=== PATIENT | male | born 1975 | race Caucasian/White ===

== ENCOUNTER → 2024-01-27 09:48 | Outpatient (REF) | payer BC, SELFPAY | LOC: RAD 09:48 | PROVIDERS: ATTENDING PHYSICIAN Physician Assistant; FAMILY PHYSICIAN Family Medicine | DX: R11.2 Nausea with vomiting, unspecified (principal) | CPT/HCPCS: 74246; 74248 ==

== ENCOUNTER → 2024-08-06 06:25 | Day surgery (SDC) | payer BC, SELFPAY | LOC: GI 06:25 | PROVIDERS: ATTENDING PHYSICIAN Specialist | DX: K22.70 Barrett's esophagus without dysplasia (principal); K29.50 Unspecified chronic gastritis without bleeding; R11.2 Nausea with vomiting, unspecified | CPT/HCPCS: 43239; 88305; 88342 ==

== ENCOUNTER → 2024-09-25 07:28 | Outpatient (REF) | payer BC, SELFPAY | LOC: HWRAD 07:28 | PROVIDERS: ATTENDING PHYSICIAN Student in an Organized Health Care Education/Training Program | DX: D17.1 Benign lipomatous neoplasm of skin and subcutaneous tissue of trunk (principal) | CPT/HCPCS: 76536; 76604 ==

== ENCOUNTER → 2024-09-28 13:38 | Outpatient (REF) | payer SELFPAY | LOC: HWRAD 13:38 | PROVIDERS: ATTENDING PHYSICIAN Student in an Organized Health Care Education/Training Program | DX: E78.5 Hyperlipidemia, unspecified (principal) | CPT/HCPCS: 75571 ==

== ENCOUNTER 2024-11-12 14:20 | Emergency (ER) | payer BC, SELFPAY ==
[2024-11-12 14:22] VITALS: BP 164/98
[2024-11-12 14:38] LABS: % Basophils 0.5 % (0-2); % Eosinophils 2.2 % (0-6); % Immature Granulocytes 0.4 % (0-0.5); % Lymphocytes 17.9 % (20.5-51.1); % Monocytes 8.6 % (1.7-9.3); % Neutrophils 70.4 % (42.2-75.2); Absolute Eosinophils 0.1 10^3/uL (0-0.7); Absolute Monocytes 0.5 10^3/uL (0.1-0.6); Absolute Neutrophils 3.9 10^3/uL (1.4-6.5); Mean Corp Hgb Conc. 37.2 g/dL (33.0-37.0); Mean Corpuscular Hgb 33.2 pg (27.0-31.0); Mean Corpuscular Volume 89.2 fL (80.0-94.0); Mean Platelet Volume 9.9 fL (7.4-10.4); Nucleated Red Blood Cells % 0 % (-); Platelet Count 156 10^3/uL (130-400); Red Blood Cell Count 4.82 10^6/uL (4.70-6.10); Red Cell Dist. Width 11.5 % (11.5-14.5); White Blood Cell Count 5.5 10^3/uL (4.8-10.8)
[2024-11-12 14:54] LABS: ALT (SGPT) 30 U/L (0-50); AST (SGOT) 33 U/L (17-59); Alkaline Phosphatase 84 U/L (38-126); Blood Urea Nitrogen 18 mg/dl (9-20); Calcium 9.6 mg/dl (8.4-10.2); Carbon Dioxide 23 mmol/L (22-30); Chloride 107 mmol/L (98-107); Glucose 138 mg/dl (70-99); Potassium 3.7 mmol/L (3.5-5.1); Sodium 141 mmol/L (135-145); Total Bilirubin 1.1 mg/dl (0.2-1.3); Total Protein 7.4 g/dl (6.3-8.2); eGFR > 60.00
[2024-11-12 15:06] LABS: Troponin I < 0.012 ng/ml
[2024-11-12 19:00] VITALS: BP 124/104
--- NOTE | 2024-11-12 19:32 | ED.GENMED ---
History of Present Illness
General
Chief Complaint: Chest Pain
Time Seen by Provider: 11/12/24 17:57
History of Present Illness
History of Present Illness:
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 States the episode today was more prominent in vomiting chest heaviness and near syncope, lasting
several seconds before resolving. Denies any associated provoking or palliating factors. Denies current chest pain or shortness of breath. Denies illicit substance use.
Past History
Past History
ED Past Medical History: GERD (Omeprazole)
ED Past Surgical History: Other (recurrent perirectal abscess)
Social History
Tobacco: Non-smoker
Alcohol: Occasional
Personal:
Living: with family
Employment: Employed (sales)
Review of Systems
Review of Systems
Allergies reviewed?: Yes
All Other Systems: ROS reviewed and negative except as documented in HPI and ROS
Phy Exam
Physical Exam
Physical Exam:
GEN: Well appearing, NAD, WDWN
HEENT: Oral mucosa moist, no scleral icterus
Cardiac: Regular rate and rhythm, no murmurs
Lung: No respiratory distress, no tachypnea
MSK: No gross deformity or injuries
Skin: Good color, no pallor or jaundice, no rashes
Neuro: AO x3, moves all extremities freely
Psych: Calm, cooperative
Scores
Heart Score for Chest Pain Patients
STEMI patient?: No
History: Slightly or Non-Suspicious
ECG: Normal
Age: >45 - <65 years
Risk Factors: 1 or 2 Risk Factors
Troponin: </= Normal Limit
Heart Score for Chest Pain Patients: 2
Heart Score Risk: 2.5% MACE over next 6 weeks
Course
Orders/Labs/Results
Orders:
Orders
11/12/24 14:21
Electrocardiogram (*1) Urgent
Reason for Study: Palpitations
EKG- Treatment ONCE
11/12/24 14:32
Complete Blood Count/With Diff Urgent
Comprehensive Metabolic Panel Urgent
Troponin I Urgent
11/12/24 18:19
CR Chest - 2 Views Urgent
Comment:
Reason For Exam: palpitations
Abnormal Lab Results
11/12/24
14:32
MCH 33.2 H pg
(27.0-31.0)
MCHC 37.2 H g/dL
(33.0-37.0)
Absolute Lymphs (auto) 1.0 L 10^3/uL
(1.2-3.4)
Lymphocytes % 17.9 L %
(20.5-51.1)
Glucose 138 H mg/dl
(70-99)
11/12/24 14:32
11/12/24 14:32
Vital Signs
Initial and Last Documented VS:
Initial Vital Signs
Temp Pulse Resp BP Pulse Ox
98.3 F 89 16 164/98 99
11/12/24 14:22 11/12/24 14:22 11/12/24 14:22 11/12/24 14:22 11/12/24 14:22
Last Documented Vital Signs
Temp Pulse Resp BP Pulse Ox
98.3 F 67 18 164/98 99
11/12/24 14:22 11/12/24 17:34 11/12/24 17:34 11/12/24 14:22 11/12/24 14:22
MDM/Problems Addressed
MDM/Problems Addressed:
49-year-old male presenting with palpitations. Certainly the episode today is more concerning given near syncope and chest tightness however he has no events observed on telemetry. Feel this patient is admission for further telemetry monitoring
however I communicated with cardiology and hopeful for close follow-up for Holter monitor placement. Patient is suitable for discharge to home and further outpatient management
*Pulse Oximetry
Patient hypoxic: no
*Critical Care Note
Total Time (30-74mins, 75-104mins- exclusive of procedures): Not Applicable
ED Attending Note
-
Portions of this chart may have been created with voice recognition software.� Occasional wrong word or��sound alike� substitutions may have occurred due to the inherent limitations of voice recognition software.
Discharge Plan
Departure
Patient Disposition: Home (Routine Discharge)
Date of Disposition: 11/12/24
Time of Disposition: 19:35
Patient with high blood pressure during this ER visit?: No
Discharge Problem:
Heart palpitations
Instructions: Palpitations - ED discharge instructions
Prescriptions:
No Action
rabeprazole 20 mg Tablet,Delayed Release (Dr/Ec)
20 mg PO DAILY
ascorbic acid (vitamin C) [Vitamin C] 500 mg Tablet
1,000 mg PO DAILY Qty: 0
Patient Comments:
does not know dose
acetaminophen [Tylenol Extra Strength] 500 mg tablet
1,000 mg PO Q6HPRN PRN (Reason: mild pain) Qty: 1 0RF
Eliquis 5 mg Tablet
10 mg PO BID Qty: 28 0RF
Rx Instructions:
2 tabs 2x per day for 1 week
Eliquis 5 mg tablet
5 mg PO BID Qty: 60 3RF
Referrals:
Maureen Steven DO [Family Provider, Family Practice]
Shorty Cohen MD [Active, Cardiology]
Interventions
Interventions:
*Risk Screen - Suicide Last Done: 11/12/24 14:23
*General Assessment Last Done: 11/12/24 17:34
*Neglect/Abuse Screening Last Done: 11/12/24 14:23
*ED- Fall Risk Assessment Last Done: 11/12/24 17:34
ED- Cardiac Assessment Last Done: 11/12/24 17:34
Discharge Date and Time
Print Language: ISRAELI
== END 2024-11-12 19:50 | disposition home or self-care (01) ==
LOC: EMR 14:20
PROVIDERS: Emergency Medicine; EMERGENCY PHYSICIAN Emergency Medicine; FAMILY PHYSICIAN Family Medicine
DX: R00.2 Palpitations (principal); Z86.711 Personal history of pulmonary embolism; K21.9 Gastro-esophageal reflux disease without esophagitis; Z79.899 Other long term (current) drug therapy
CPT/HCPCS: 99283; 71046; 80053; 84484; 85025; 93005

== ENCOUNTER → 2024-12-08 08:05 | Outpatient (REF) | payer BC, SELFPAY | LOC: HWRCS 08:05 | PROVIDERS: ATTENDING PHYSICIAN Internal Medicine Cardiovascular Disease; FAMILY PHYSICIAN Family Medicine | DX: R55 Syncope and collapse (principal); R00.2 Palpitations | CPT/HCPCS: 93306 ==

== ENCOUNTER 2024-12-28 18:24 | Emergency (ER) | payer BC, SELFPAY ==
[2024-12-28 18:31] VITALS: BP 158/89
--- NOTE | 2024-12-28 20:19 | ED.GENMED ---
History of Present Illness
General
Chief Complaint: DVT/Possible Blood Clot
Time Seen by Provider: 12/28/24 20:08
History of Present Illness
History of Present Illness:
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 No falls
or trauma
Past History
Past History
ED Past Medical History: GERD (Omeprazole)
ED Past Surgical History: Other (recurrent perirectal abscess)
Social History
Tobacco: Non-smoker
Alcohol: Occasional
Personal:
Living: with family
Employment: Employed (sales)
Review of Systems
Review of Systems
Allergies reviewed?: Yes
All Other Systems: ROS reviewed and negative except as documented in HPI and ROS
Phy Exam
Physical Exam
Physical Exam:
GEN: Well appearing, NAD, WDWN
HEENT: Oral mucosa moist, no scleral icterus
Cardiac: Regular rate
Lung: No respiratory distress, no tachypnea
MSK: No gross deformity or injuries. Mild swelling to the right ankle. Focal tenderness along the anterior tibialis muscle belly/tendon. There is pain with resisted dorsiflexion and forced plantarflexion. No calf edema
Skin: Good color, no pallor or jaundice, no rashes
Neuro: AO x3, moves all extremities freely
Psych: Calm, cooperative
Course
Orders/Labs/Results
Orders:
Orders
12/28/24 18:35
Periph Venous Lwr Ext Rt US [US Periph Venous LOWER Ext RT] Urgent
Comment: hx of DVT
Reason For Exam: swelling
Vital Signs
Initial and Last Documented VS:
Initial Vital Signs
Temp Pulse Resp BP Pulse Ox
98.3 F 84 18 158/89 97
12/28/24 18:31 12/28/24 18:31 12/28/24 18:31 12/28/24 18:31 12/28/24 18:31
Last Documented Vital Signs
Temp Pulse Resp BP Pulse Ox
98.3 F 84 18 158/89 97
12/28/24 18:31 12/28/24 18:31 12/28/24 18:31 12/28/24 18:31 12/28/24 20:19
MDM/Problems Addressed
MDM/Problems Addressed:
Ultrasound is unremarkable. A Phan's cyst is noted however the patient has no calf edema thus I do not feel this is the etiology. Likely anterior tibialis tendinitis, discussed supportive care
*Pulse Oximetry
SaO2: 97
Oxygen Mode of Delivery: Room air
Patient hypoxic: no
*Critical Care Note
Total Time (30-74mins, 75-104mins- exclusive of procedures): Not Applicable
ED Attending Note
-
Portions of this chart may have been created with voice recognition software.� Occasional wrong word or��sound alike� substitutions may have occurred due to the inherent limitations of voice recognition software.
Discharge Plan
Departure
Patient Disposition: Home (Routine Discharge)
Date of Disposition: 12/28/24
Time of Disposition: 21:09
Patient with high blood pressure during this ER visit?: No
Discharge Problem:
Right ankle tendonitis
Instructions: Tendinopathy (DC)
Prescriptions:
No Action
rabeprazole 20 mg Tablet,Delayed Release (Dr/Ec)
20 mg PO DAILY
ascorbic acid (vitamin C) [Vitamin C] 500 mg Tablet
1,000 mg PO DAILY Qty: 0
Patient Comments:
does not know dose
acetaminophen [Tylenol Extra Strength] 500 mg tablet
1,000 mg PO Q6HPRN PRN (Reason: mild pain) Qty: 1 0RF
Eliquis 5 mg Tablet
10 mg PO BID Qty: 28 0RF
Rx Instructions:
2 tabs 2x per day for 1 week
Eliquis 5 mg tablet
5 mg PO BID Qty: 60 3RF
Referrals:
Shorty Cohen MD [Family Provider, [facility]]
Interventions
Interventions:
*Risk Screen - Suicide Last Done: 12/28/24 18:31
*General Assessment Last Done: 12/28/24 18:31
*Nursing Disposition Last Done: 12/28/24 21:14
ED- Cardiac Assessment Last Done: 12/28/24 20:00
ED- Pulmonary Assessment Last Done: 12/28/24 20:00
ED-Peripheral Vascular Assessment Last Done: 12/28/24 20:00
Discharge Date and Time
Discharge Date/Time: 12/28/24 21:14
Print Language: MACEDON[place]
== END 2024-12-28 21:14 | disposition home or self-care (01) ==
LOC: EMR 18:24
PROVIDERS: EMERGENCY PHYSICIAN Emergency Medicine; FAMILY PHYSICIAN Family Medicine
DX: M77.51 Other enthesopathy of right foot and ankle (principal); Z86.711 Personal history of pulmonary embolism; Z86.718 Personal history of other venous thrombosis and embolism
CPT/HCPCS: 99284; 93971